=== PATIENT | female | born 1965 | race African-American/Black ===

== ENCOUNTER 2017-08-15 18:38 | Emergency (ER) | payer MEDICAID ==
[~2017-08-15] VITALS: Ht 154.9 cm; Wt 86.0 kg
[~2017-08-15 18:38] MED LIST: CLON0.2T PO
[2017-08-15] MEDS ORDERED: KETOROLAC 30MG/ML VIAL IV STA (21:54)
[2017-08-15 22:39] LABS: BASOPHILS % 0.8 % (0.0-2.0); EOSINOPHILS % 4.8 % (0.0-5.0); HEMATOCRIT. 39.1 % (36.0-48.0); HEMOGLOBIN. 12.2 g/dL (12.0-16.0); LYMPHOCYTES % 36.5 % (20.0-50.0); MEAN CORPUSCULAR HEMOGLOBIN 21.7 pg (28.0-32.0); MEAN CORPUSCULAR VOLUME 69.2 fL (81.0-99.0); MEAN PLATELET VOLUME 9.8 fl (7.4-10.4); MONOCYTES % 10.3 % (2.0-8.0); NEUTROPHILS % 47.6 % (40.0-76.0); PLATELET 214 x1000/uL (130-400); RED BLOOD CELL COUNT 5.64 mill/uL (4.2-5.4); RED CELL DISTRIBUTION WIDTH 18.4 % (11.6-14.6)
[2017-08-15 22:44] LABS: CHLORIDE 108 mEq/L (98-107)
[2017-08-15 22:48] LABS: CARBON DIOXIDE 28 mEq/L (21-32)
[2017-08-15 22:50] LABS: D-DIMER 0.25 mg/L FEU (<0.50); INR 1.1; PARTIAL THROMBOPLASTIN TIME 30.9 sec (23.4-31.0); PROTHROMBIN TIME 11.3 sec (9.4-11.6)
[2017-08-16 01:55] VITALS: BP 157/84
== END 2017-08-16 01:56 | disposition home or self-care (01) ==
LOC: ER 20:00
DX: R25.2 Cramp and spasm (principal); M25.512 Pain in left shoulder; R20.8 Other disturbances of skin sensation; I11.0 Hypertensive heart disease with heart failure; I50.9 Heart failure, unspecified; Z88.5 Allergy status to narcotic agent; Z88.8 Allergy status to other drugs, medicaments and biological substances
CPT/HCPCS: 36415; 71045; 71250; 72125; 80053; 85025; 85379; 85610; 85730; 93005; 93971; 96374; 99285; J1885; Z7610

== ENCOUNTER 2017-11-12 05:10 | Emergency (ER) | payer MEDICAID ==
[~2017-11-12] VITALS: Ht 154.9 cm; Wt 78.0 kg
[2017-11-12 06:44] LABS: HEMATOCRIT. 39.6 % (36.0-48.0); HEMOGLOBIN. 12.6 g/dL (12.0-16.0); MEAN PLATELET VOLUME 9.5 fl (7.4-10.4); PLATELET 212 x1000/uL (130-400); RED BLOOD CELL COUNT 5.74 mill/uL (4.2-5.4); RED CELL DISTRIBUTION WIDTH 17.6 % (11.6-14.6)
[2017-11-12 06:48] LABS: CHLORIDE 101 mEq/L (98-107)
[2017-11-12 06:49] LABS: INR 1.1
[2017-11-12 07:09] LABS: PLATELET ESTIMATE NORMAL
[2017-11-12 08:18] VITALS: BP 145/74
== END 2017-11-12 08:46 | disposition home or self-care (01) ==
LOC: ER 05:33
DX: R20.2 Paresthesia of skin (principal); I11.0 Hypertensive heart disease with heart failure; I50.9 Heart failure, unspecified; Z87.891 Personal history of nicotine dependence; Z88.5 Allergy status to narcotic agent
CPT/HCPCS: 36415; 70450; 71045; 80053; 83880; 84484; 85025; 85610; 93005; 99285

== ENCOUNTER 2018-02-17 19:30 | Emergency (ER) | payer MEDICAID ==
[~2018-02-17] VITALS: Ht 154.9 cm; Wt 77.0 kg
[2018-02-17] MEDS ORDERED: MORPHINE SULFATE 10 MG/ML CPJ IM ONE (22:45)
[2018-02-17 23:23] LABS: CHLORIDE 97 mEq/L (98-107); INR 1.1
[2018-02-18 01:35] VITALS: BP 178/85
== END 2018-02-18 01:44 | disposition home or self-care (01) ==
LOC: ER 22:22
DX: M62.831 Muscle spasm of calf (principal); I11.0 Hypertensive heart disease with heart failure; I50.9 Heart failure, unspecified; F12.10 Cannabis abuse, uncomplicated; Z86.718 Personal history of other venous thrombosis and embolism; Z88.6 Allergy status to analgesic agent; Z88.8 Allergy status to other drugs, medicaments and biological substances; Z91.041 Radiographic dye allergy status; Z79.899 Other long term (current) drug therapy; Z87.891 Personal history of nicotine dependence
CPT/HCPCS: 36415; 80053; 85610; 93971; 96372; 99285; J2270; Z7610

== ENCOUNTER 2018-03-07 17:10 | Inpatient (IN) | payer MEDICAID, OTHER ==
[~2018-03-07] VITALS: Ht 154.9 cm; Wt 74.8 kg
[2018-03-07] MEDS ORDERED: LISINOPRIL 20MG TABLET PO ONE (22:00)
[2018-03-07] MEDS ORDERED: CLONIDINE 0.3MG TABLET PO ONE (22:00)
[2018-03-07 22:25] LABS: CLARITY URINE CLEAR (CLEAR); COLOR URINE YELLOW (YELLOW); KETONES URINE NEGATIVE (NEGATIVE); LEUKOCYTE ESTERASE URINE TRACE (NEGATIVE); NITRITE URINE NEGATIVE (NEGATIVE); OCCULT BLOOD URINE TRACE (NEGATIVE); PROTEIN URINE NEGATIVE (NEGATIVE); SPECIFIC GRAVITY URINE 1.008 (1.005-1.030); UROBILINOGEN URINE 0.2 E.U./dL (0.2-1.0)
[2018-03-07 22:36] LABS: *AMPHETAMINES SCREEN URINE NEGATIVE (NEGATIVE); *BARBITURATES SCREEN URINE NEGATIVE (NEGATIVE); *BENZODIAZEPINES SCREEN URINE NEGATIVE (NEGATIVE)
[2018-03-07 22:37] LABS: *COCAINE SCREEN URINE NEGATIVE (NEGATIVE); CANNABINOID URINE SCREEN PRESUMTIVE POSITIVE (NEGATIVE); METHADONE URINE SCREEN NEGATIVE (NEGATIVE); OPIATES URINE SCREEN NEGATIVE (NEGATIVE); PHENCYCLIDINE URINE SCREEN NEGATIVE (NEGATIVE)
[2018-03-07 23:37] LABS: BASOPHILS % 1.1 % (0.0-2.0); EOSINOPHILS % 5.2 % (0.0-5.0); HEMATOCRIT. 41.4 % (36.0-48.0); HEMOGLOBIN. 13.2 g/dL (12.0-16.0); MEAN CORPUSCULAR HEMOGLOBIN 22.5 pg (28.0-32.0); MEAN CORPUSCULAR VOLUME 70.6 fL (81.0-99.0); MEAN PLATELET VOLUME 9.1 fl (7.4-10.4); MONOCYTES % 10.2 % (2.0-8.0); NEUTROPHILS % 42.5 % (40.0-76.0); PLATELET 219 x1000/uL (130-400); RED BLOOD CELL COUNT 5.86 mill/uL (4.2-5.4); RED CELL DISTRIBUTION WIDTH 16.1 % (11.6-14.6)
[2018-03-07 23:39] LABS: CHLORIDE 96 mEq/L (98-107)
[2018-03-07 23:43] LABS: ETHANOL BLOOD < 10 mg/dL
[2018-03-07] MEDS ORDERED: LABETALOL 5MG/ML SYR 20 MG/4 ML SYRINGE IV NR (23:45)
[2018-03-07] MEDS ORDERED: LABETALOL HCL 20MG/4ML CARPUJECT IV ONE (23:45)
[2018-03-08] MEDS ORDERED: ACETAMINOPHEN 500MG TABLET PO ONE (01:00)
[2018-03-08] MEDS ORDERED: KETOROLAC 30MG/ML VIAL IV ONE (02:00)
[2018-03-08] MEDS ORDERED: CLONIDINE 0.1MG TABLET PO PRN (04:15)
[2018-03-08] MEDS ORDERED: AMLODIPINE 10MG TABLET PO SCH (04:30)
[2018-03-08] MEDS ORDERED: METOPROLOL TARTRATE 50MG TABLET PO SCH (04:30)
[2018-03-08] MEDS ORDERED: LISINOPRIL 20MG TABLET PO SCH (04:30)
[2018-03-08] MEDS ORDERED: POTASSIUM CHLORIDE 20MEQ TABLET SR PO NR ×4 (04:30→12:00)
[2018-03-08] MEDS ORDERED: HYDRALAZINE HCL 100MG TABLET PO SCH ×2 (06:00→10:00)
[2018-03-08 06:26] VITALS: BP 159/84
[2018-03-08 08:00] VITALS: BP 162/79
[2018-03-08] MEDS ORDERED: HYDROCODONE/ACETAMINOPHEN 5/325MG TABLET PO PRN (08:00)
[2018-03-08] MEDS ORDERED: MORPHINE SULFATE 2 MG/ML CPJ (NOT FOR IM USE) IV PRN (08:00)
[2018-03-08 08:39] VITALS: BP 162/79
[2018-03-08] MEDS ORDERED: ASPIRIN 325MG TABLET PO SCH (09:00)
[2018-03-08] MEDS ORDERED: KETOROLAC 15MG/ML VIAL IV PRN (09:15)
[2018-03-08] MEDS ORDERED: CLON0.3T PO (11:25)
[2018-03-08] MEDS ORDERED: HYDR25TA MT (11:27)
[2018-03-08] MEDS ORDERED: IBUP-2030 PO (11:27)
[2018-03-08] MEDS ORDERED: LISI-604 MT (11:27)
[2018-03-08] MEDS ORDERED: GABA-531 MT (11:29)
[2018-03-08] MEDS ORDERED: DOCU-150 MT (11:29)
[2018-03-08] MEDS ORDERED: POTASSIUM CHLORIDE 20MEQ TABLET SR PO ONE (11:30)
[2018-03-08 12:58] VITALS: BP 113/63
[2018-03-08 15:48] VITALS: BP 113/63
[2018-03-08 16:51] VITALS: BP 136/72
[2018-03-09] MEDS ORDERED: LISINOPRIL 20MG TABLET PO SCH (09:00)
== END 2018-03-08 17:00 | disposition home or self-care (01) | DRG 199 ==
LOC: ER 17:10 → 6WST 03-08 00:54 → EDBEDREQ 03-08 00:56 → ENRESERV 03-08 02:32
PROVIDERS: ADMIT Internal Medicine; ATTEND Internal Medicine
DX: I16.1 Hypertensive emergency (principal); N17.9 Acute kidney failure, unspecified; E87.8 Other disorders of electrolyte and fluid balance, not elsewhere classified; I50.9 Heart failure, unspecified; E66.9 Obesity, unspecified; I13.0 Hypertensive heart and chronic kidney disease with heart failure and stage 1 through stage 4 chronic kidney disease, or unspecified chronic kidney disease; G62.9 Polyneuropathy, unspecified; E87.6 Hypokalemia; N18.9 Chronic kidney disease, unspecified; Z86.718 Personal history of other venous thrombosis and embolism; Z87.891 Personal history of nicotine dependence; Z98.891 History of uterine scar from previous surgery; Z79.01 Long term (current) use of anticoagulants; Z88.8 Allergy status to other drugs, medicaments and biological substances; Z88.6 Allergy status to analgesic agent; Z91.041 Radiographic dye allergy status; Z68.31 Body mass index [BMI] 31.0-31.9, adult; Z79.899 Other long term (current) drug therapy
CPT/HCPCS: 36415; 70450; 70551; 71045; 80053; 80305; 81003; 84132; 84484; 85025; 93005; 93971; 97162; G0482; J1885; J3490

== ENCOUNTER 2018-07-06 10:06 | Inpatient (IN) | payer MEDICAID ==
[~2018-07-06] VITALS: Ht 154.9 cm; Wt 64.5 kg
[~2018-07-06 10:06] MED LIST changes: +DOCU-150 MT; +GABA-531 MT; +HYDR25TA MT; +IBUP-2030 PO; +LISI-604 MT
[2018-07-06] MEDS ORDERED: ONDANSETRON HCL 4MG/2ML INJ IV STA (10:47)
[2018-07-06] MEDS ORDERED: FAMOTIDINE 20MG/2ML VIAL IV STA (10:47)
[2018-07-06] MEDS ORDERED: FENTANYL CITRATE/PF 50MCG/ML 2ML VIAL IV ONE (11:15)
[2018-07-06 11:53] LABS: BASOPHILS % 1.5 % (0.0-2.0); EOSINOPHILS % 4.1 % (0.0-5.0); HEMOGLOBIN. 15.4 g/dL (12.0-16.0); LYMPHOCYTES % 27.3 % (20.0-50.0); MEAN CORPUSCULAR HEMOGLOBIN 22.9 pg (28.0-32.0); MEAN CORPUSCULAR VOLUME 71.6 fL (81.0-99.0); MEAN PLATELET VOLUME 9.3 fl (7.4-10.4); MONOCYTES % 7.7 % (2.0-8.0); NEUTROPHILS % 59.4 % (40.0-76.0); PLATELET 234 x1000/uL (130-400); RED BLOOD CELL COUNT 6.71 mill/uL (4.2-5.4); RED CELL DISTRIBUTION WIDTH 16.3 % (11.6-14.6)
[2018-07-06 12:02] LABS: CHLORIDE 94 mEq/L (98-107)
[2018-07-06] MEDS ORDERED: POTASSIUM CHLORIDE 20MEQ TABLET SR PO ONE (12:30)
[2018-07-06] MEDS ORDERED: KCL 20MEQ/100ML PREMIX 100 ML IV ONE (12:30)
[2018-07-06] MEDS ORDERED: ASPIRIN 81MG TABLET PO ONE (12:45)
[2018-07-06] MEDS ORDERED: SIMETHICONE 40 MG/0.6 ML 30ML ONE (14:01)
[2018-07-06 14:02] LABS: INR 1.1; PARTIAL THROMBOPLASTIN TIME 27.2 sec (23.4-31.0); PROTHROMBIN TIME 10.8 sec (9.1-11.1)
[2018-07-06] MEDS ORDERED: SODIUM CHLORIDE 0.9% 1,000 ML IV NR (14:15)
[2018-07-06] MEDS: ONDANSETRON HCL 4MG/2ML INJ IV PRN (15:22)
[2018-07-06 15:45] LABS: PHOSPHORUS 3.8 mg/dL (2.5-4.9)
[2018-07-06] MEDS ORDERED: POTASSIUM CHLORIDE INJ 40 MEQ in DEXT 5% WATER 250 ML IV NR (16:30)
[2018-07-06 17:31] VITALS: BP 196/100
[2018-07-06 17:55] VITALS: BP 203/163
[2018-07-06 18:03] VITALS: BP 200/111
[2018-07-06 18:05] VITALS: BP 200/111
[2018-07-06] MEDS: HYDROMORPHONE HCL/PF 2MG/ML CPJ IV PRN (18:44)
[2018-07-06 19:29] LABS: CLARITY URINE CLOUDY (CLEAR); COLOR URINE YELLOW (YELLOW); KETONES URINE TRACE (NEGATIVE); LEUKOCYTE ESTERASE URINE 1+ (NEGATIVE); NITRITE URINE NEGATIVE (NEGATIVE); OCCULT BLOOD URINE 1+ (NEGATIVE); PROTEIN URINE 1+ (NEGATIVE); SPECIFIC GRAVITY URINE 1.015 (1.005-1.030); UROBILINOGEN URINE 0.2 E.U./dL (0.2-1.0)
[2018-07-06 19:45] LABS: *AMPHETAMINES SCREEN URINE NEGATIVE (NEGATIVE); *BARBITURATES SCREEN URINE NEGATIVE (NEGATIVE); *BENZODIAZEPINES SCREEN URINE NEGATIVE (NEGATIVE); *COCAINE SCREEN URINE NEGATIVE (NEGATIVE); METHADONE URINE SCREEN NEGATIVE (NEGATIVE)
[2018-07-06 19:46] LABS: CANNABINOID URINE SCREEN PRESUMTIVE POSITIVE (NEGATIVE); OPIATES URINE SCREEN NEGATIVE (NEGATIVE); PHENCYCLIDINE URINE SCREEN NEGATIVE (NEGATIVE)
[2018-07-06 20:00] VITALS: BP 153/82
[2018-07-06] MEDS: DIPHENHYDRAMINE 50MG/ML VIAL IV PRN (20:54)
[2018-07-06 22:00] VITALS: BP 179/95
[2018-07-06] MEDS: CLONIDINE 0.1MG TABLET PO PRN (22:45)
[2018-07-07] VITALS (13 sets, daily range): BP systolic 136–204; BP diastolic 69–114
[2018-07-07] MEDS: DIPHENHYDRAMINE 50MG/ML VIAL IV PRN ×2 (05:14→21:33)
[2018-07-07] MEDS: CLONIDINE 0.1MG TABLET PO PRN ×3 (05:19→21:33)
[2018-07-07 06:32] LABS: BASOPHILS % 1.1 % (0.0-2.0); EOSINOPHILS % 4.7 % (0.0-5.0); HEMATOCRIT. 39.9 % (36.0-48.0); HEMOGLOBIN. 12.7 g/dL (12.0-16.0); LYMPHOCYTES % 20.1 % (20.0-50.0); MEAN CORPUSCULAR HEMOGLOBIN 23.2 pg (28.0-32.0); MEAN CORPUSCULAR VOLUME 72.7 fL (81.0-99.0); MEAN PLATELET VOLUME 9.3 fl (7.4-10.4); MONOCYTES % 12.3 % (2.0-8.0); NEUTROPHILS % 61.8 % (40.0-76.0); PLATELET 164 x1000/uL (130-400); RED BLOOD CELL COUNT 5.49 mill/uL (4.2-5.4); RED CELL DISTRIBUTION WIDTH 16.6 % (11.6-14.6)
[2018-07-07] MEDS: PANTOPRAZOLE SODIUM 40 MG/VIAL IV SCH (08:46)
[2018-07-07] MEDS: AMLODIPINE 5MG TABLET PO SCH ×2 (08:46→21:33)
[2018-07-07] MEDS: SODIUM CHLORIDE 0.45% 1,000 ML IV SCH ×2 (08:47→20:12)
[2018-07-07] MEDS ORDERED: POTASSIUM CHLORIDE INJ 40 MEQ in DEXT 5% WATER 250 ML IV ONE (09:00)
[2018-07-07] MEDS: CEFTRIAXONE 1 G PREMIX 50 ML IV SCH (10:17)
[2018-07-07] MEDS: HYDROMORPHONE HCL/PF 2MG/ML CPJ IV PRN ×2 (11:48→20:11)
[2018-07-07] MEDS ORDERED: THROAT LOZENGES-BENZOCAINE/MENTH/CETYLPYRD CL LOZENGES MM PRN (12:00)
[2018-07-07] MEDS ORDERED: LACTULOSE 20G/30ML UDC PO NR (12:45)
[2018-07-07] MEDS ORDERED: BISACODYL 10MG SUPP PR NR (12:45)
[2018-07-07] MEDS ORDERED: BISACODYL 5MG TABLET PO PRN (12:45)
[2018-07-07] MEDS ORDERED: BISACODYL 10MG SUPP PR PRN (12:45)
[2018-07-08] VITALS (14 sets, daily range): BP systolic 124–183; BP diastolic 73–120
[2018-07-08] MEDS: CLONIDINE 0.1MG TABLET PO PRN ×2 (04:00→08:13)
[2018-07-08] MEDS: SODIUM CHLORIDE 0.45% 1,000 ML IV SCH ×2 (04:01→14:38)
[2018-07-08 06:48] LABS: BASOPHILS % 1.1 % (0.0-2.0); EOSINOPHILS % 7.2 % (0.0-5.0); HEMATOCRIT. 39.1 % (36.0-48.0); HEMOGLOBIN. 12.2 g/dL (12.0-16.0); LYMPHOCYTES % 33.4 % (20.0-50.0); MEAN CORPUSCULAR HEMOGLOBIN 22.7 pg (28.0-32.0); MEAN CORPUSCULAR VOLUME 72.4 fL (81.0-99.0); MEAN PLATELET VOLUME 9.4 fl (7.4-10.4); MONOCYTES % 12.8 % (2.0-8.0); NEUTROPHILS % 45.5 % (40.0-76.0); PLATELET 145 x1000/uL (130-400); RED BLOOD CELL COUNT 5.39 mill/uL (4.2-5.4); RED CELL DISTRIBUTION WIDTH 16.6 % (11.6-14.6)
[2018-07-08 06:54] LABS: INR 1.1; PARTIAL THROMBOPLASTIN TIME 23.9 sec (23.4-31.0); PROTHROMBIN TIME 10.8 sec (9.1-11.1)
[2018-07-08 07:29] LABS: PHOSPHORUS 2.8 mg/dL (2.5-4.9)
[2018-07-08] MEDS: PANTOPRAZOLE SODIUM 40 MG/VIAL IV SCH (08:12)
[2018-07-08] MEDS: ONDANSETRON HCL 4MG/2ML INJ IV PRN (08:12)
[2018-07-08] MEDS: AMLODIPINE 5MG TABLET PO SCH ×2 (08:13→20:50)
[2018-07-08] MEDS: CEFTRIAXONE 1 G PREMIX 50 ML IV SCH (08:13)
[2018-07-08] MEDS: HYDROMORPHONE HCL/PF 2MG/ML CPJ IV PRN ×2 (08:14→20:41)
[2018-07-08] MEDS: POTASSIUM CHLORIDE 20MEQ/PACKET PO NR ×2 (08:15→08:24)
[2018-07-08] MEDS ORDERED: POTASSIUM CHLORIDE INJ 60 MEQ in DEXT 5% WATER 500 ML IV NR ×2 (08:45→09:30)
[2018-07-08] MEDS: DIPHENHYDRAMINE 50MG/ML VIAL IV PRN ×2 (09:58→21:11)
[2018-07-08] MEDS ORDERED: POTASSIUM CHLORIDE 20MEQ TABLET SR PO NR (12:00)
[2018-07-08] MEDS ORDERED: METOCLOPRAMIDE HCL 10MG/2ML VIAL IV NR (12:00)
[2018-07-08] MEDS ORDERED: FENTANYL CITRATE/PF 50MCG/ML 2ML VIAL ONE (15:12)
[2018-07-08] MEDS ORDERED: MIDAZOLAM HCL 5 MG/5 ML VIAL ONE (15:12)
[2018-07-08] MEDS ORDERED: FENTANYL CITRATE/PF 50MCG/ML 2ML VIAL IV PRN (15:15)
[2018-07-08] MEDS ORDERED: MIDAZOLAM HCL 5 MG/5 ML VIAL IV PRN (15:17)
[2018-07-09] VITALS (8 sets, daily range): BP systolic 151–213; BP diastolic 79–125
[2018-07-09] MEDS: SODIUM CHLORIDE 0.45% 1,000 ML IV SCH ×2 (01:04→07:25)
[2018-07-09] MEDS: DIPHENHYDRAMINE 50MG/ML VIAL IV PRN (05:32)
[2018-07-09] MEDS: HYDROMORPHONE HCL/PF 2MG/ML CPJ IV PRN ×2 (06:47→11:35)
[2018-07-09 06:54] LABS: BASOPHILS % 0.7 % (0.0-2.0); EOSINOPHILS % 6.4 % (0.0-5.0); HEMOGLOBIN. 12.5 g/dL (12.0-16.0); LYMPHOCYTES % 36.1 % (20.0-50.0); MEAN CORPUSCULAR VOLUME 73.5 fL (81.0-99.0); MEAN PLATELET VOLUME 9.5 fl (7.4-10.4); MONOCYTES % 14.4 % (2.0-8.0); NEUTROPHILS % 42.4 % (40.0-76.0); PLATELET 125 x1000/uL (130-400); RED BLOOD CELL COUNT 5.44 mill/uL (4.2-5.4); RED CELL DISTRIBUTION WIDTH 17.1 % (11.6-14.6)
[2018-07-09 07:37] LABS: PHOSPHORUS 2.2 mg/dL (2.5-4.9)
[2018-07-09] MEDS ORDERED: POTASSIUM CHLORIDE 20MEQ/PACKET PO NR (08:00)
[2018-07-09] MEDS: AMLODIPINE 5MG TABLET PO SCH (08:40)
[2018-07-09] MEDS: CEFTRIAXONE 1 G PREMIX 50 ML IV SCH (08:40)
[2018-07-09] MEDS: CLONIDINE 0.1MG TABLET PO PRN (08:41)
[2018-07-09] MEDS ORDERED: FAMOTIDINE 20MG/2ML VIAL IV SCH (09:00)
[2018-07-09] MEDS: ONDANSETRON HCL 4MG/2ML INJ IV PRN (11:41)
[2018-07-09] MEDS ORDERED: CLONIDINE 0.3MG TABLET PO SCH (14:00)
[2018-07-09] MEDS ORDERED: GABAPENTIN 300MG CAPSULE PO SCH (21:00)
[2018-07-10 13:06] LABS: COMPLEMENT C3 131 mg/dL (82-167)
[2018-07-11 17:06] LABS: ANTI-NUCLEAR ANTIBODIES DIRECT Positive (Negative)
== END 2018-07-09 14:43 | disposition home or self-care (01) | DRG 241 ==
LOC: ER 10:06 → EDBEDREQSVC 14:03 → 3WST 14:03 → ENRESERV 16:00
PROVIDERS: ADMIT Internal Medicine; ATTEND Internal Medicine
PROC: 05HY33Z Insertion of Infusion Device into Upper Vein, Percutaneous Approach (ICD-10-PCS; 2018-07-06)
PROC: B54MZZA Ultrasonography of Right Upper Extremity Veins, Guidance (ICD-10-PCS; 2018-07-06)
PROC: 0DB68ZX Excision of Stomach, Via Natural or Artificial Opening Endoscopic, Diagnostic (ICD-10-PCS; principal; 2018-07-08 11:00)
DX: K29.70 Gastritis, unspecified, without bleeding (principal); N17.9 Acute kidney failure, unspecified; E87.8 Other disorders of electrolyte and fluid balance, not elsewhere classified; E83.41 Hypermagnesemia; I31.3 Pericardial effusion (noninflammatory); G62.9 Polyneuropathy, unspecified; R13.10 Dysphagia, unspecified; K44.9 Diaphragmatic hernia without obstruction or gangrene; E86.9 Volume depletion, unspecified; E87.6 Hypokalemia; K21.9 Gastro-esophageal reflux disease without esophagitis; N18.9 Chronic kidney disease, unspecified; I12.9 Hypertensive chronic kidney disease with stage 1 through stage 4 chronic kidney disease, or unspecified chronic kidney disease; N39.0 Urinary tract infection, site not specified; D25.9 Leiomyoma of uterus, unspecified; J02.9 Acute pharyngitis, unspecified; R14.3 Flatulence; K59.00 Constipation, unspecified; Z86.010 Personal history of colon polyps; Z86.718 Personal history of other venous thrombosis and embolism; Z87.891 Personal history of nicotine dependence; Z98.891 History of uterine scar from previous surgery; Z88.5 Allergy status to narcotic agent; Z88.8 Allergy status to other drugs, medicaments and biological substances; Z91.041 Radiographic dye allergy status; Z91.013 Allergy to seafood; Z79.899 Other long term (current) drug therapy
CPT/HCPCS: 36415; 36569; 71045; 74018; 74176; 74181; 76705; 76937; 80048; 80076; 80305; 82140; 82550; 82553; 82570; 83605; 83735; 83880; 84100; 84132; 84300; 84484; 86038; 86160; 88305; 88312; 88313; 92610; 93005; 93306; 93970; 96374; 96375; 99291; C1725; C1769; C9113; J0696; J1170; J1200; J2250; J2405; J2765; J3010; J3480; J3490; J7050; J7060; A4315

== ENCOUNTER 2019-06-21 13:56 | Inpatient (IN) | payer MEDICAID ==
[~2019-06-21] VITALS: Ht 165.1 cm; Wt 52.2 kg
[~2019-06-21 13:56] MED LIST changes: -CLON0.2T PO; +CLON0.3T MT; -HYDR25TA MT; -IBUP-2030 PO; -LISI-604 MT; +LISI10TA5 MT
[2019-06-21] MEDS ORDERED: SODIUM CHLORIDE 0.9% 1,000 ML IV ONE (14:50)
[2019-06-21] MEDS ORDERED: ONDANSETRON HCL 4MG/2ML INJ IV STA (14:50)
[2019-06-21] MEDS ORDERED: LORAZEPAM 2MG/ML CPJ IV ONE (15:00)
[2019-06-21] MEDS ORDERED: LABETALOL HCL 20MG/4ML CARPUJECT IV ONE (15:00)
[2019-06-21] MEDS ORDERED: NICARDIPINE 40MG/200ML PREMIX 200 ML IV STA (15:55)
[2019-06-21 16:03] LABS: CHLORIDE 110 mEq/L (98-107)
[2019-06-21 16:04] LABS: BASOPHILS % 1.2 % (0.0-2.0); EOSINOPHILS % 0.4 % (0.0-5.0); HEMATOCRIT. 44.1 % (36.0-48.0); HEMOGLOBIN. 13.8 g/dL (12.0-16.0); LYMPHOCYTES % 11.2 % (20.0-50.0); MEAN CORPUSCULAR VOLUME 70.7 fL (81.0-99.0); MEAN PLATELET VOLUME 9.5 fl (7.4-10.4); NEUTROPHILS % 81.2 % (40.0-76.0); PARTIAL THROMBOPLASTIN TIME 26.2 sec (23.4-31.0); PLATELET 215 x1000/uL (130-400); PROTHROMBIN TIME 10.7 sec (9.6-11.0); RED BLOOD CELL COUNT 6.24 mill/uL (4.2-5.4); RED CELL DISTRIBUTION WIDTH 18.6 % (11.6-14.6)
[2019-06-21 16:07] LABS: ETHANOL BLOOD < 10 mg/dL
[2019-06-21] MEDS ORDERED: KCL 20MEQ/100ML PREMIX 100 ML IV ONE (16:30)
[2019-06-21] MEDS ORDERED: FAMOTIDINE 20MG/2ML VIAL IV ONE (16:45)
[2019-06-21] MEDS ORDERED: ACETAMINOPHEN 325MG TABLET PO PRN (17:45)
[2019-06-21] MEDS ORDERED: IPRATROPIUM/ALBUTEROL 0.5-3(2.5)MG/3ML NEB HHN PRN (17:45)
[2019-06-21 17:51] LABS: CLARITY URINE CLEAR (CLEAR); COLOR URINE YELLOW (YELLOW)
[2019-06-21 17:52] LABS: KETONES URINE NEGATIVE (NEGATIVE); LEUKOCYTE ESTERASE URINE NEGATIVE (NEGATIVE); NITRITE URINE NEGATIVE (NEGATIVE); OCCULT BLOOD URINE 2+ (NEGATIVE); PROTEIN URINE 2+ (NEGATIVE); SPECIFIC GRAVITY URINE 1.008 (1.005-1.030); UROBILINOGEN URINE 0.2 E.U./dL (0.2-1.0)
[2019-06-21 18:04] LABS: *AMPHETAMINES SCREEN URINE NEGATIVE (NEGATIVE); *BARBITURATES SCREEN URINE NEGATIVE (NEGATIVE); *BENZODIAZEPINES SCREEN URINE NEGATIVE (NEGATIVE); *COCAINE SCREEN URINE NEGATIVE (NEGATIVE); METHADONE URINE SCREEN NEGATIVE (NEGATIVE); OPIATES URINE SCREEN NEGATIVE (NEGATIVE)
[2019-06-21 18:05] LABS: CANNABINOID URINE SCREEN PRESUMTIVE POSITIVE (NEGATIVE); PHENCYCLIDINE URINE SCREEN NEGATIVE (NEGATIVE)
[2019-06-21 19:40] LABS: PHOSPHORUS 3.3 mg/dL (2.5-4.9)
[2019-06-21] MEDS ORDERED: HYDRALAZINE 20MG/ML VIAL IV ONE (21:00)
[2019-06-21 22:00] VITALS: BP_SYST 159; BP_SYST 168; BP_DIAS 82; BP_DIAS 92
[2019-06-21 22:30] VITALS: BP 172/84
[2019-06-21] MEDS ORDERED: LORAZEPAM 2MG/ML CPJ IV NR (22:30)
[2019-06-21] MEDS ORDERED: HALOPERIDOL LACTATE 5MG/ML VIAL IM NR (22:30)
[2019-06-21] MEDS: ENOXAPARIN 40MG/0.4ML SYR SUBCUT SCH (22:51)
[2019-06-21] MEDS: ONDANSETRON HCL 4MG/2ML INJ IV PRN (22:51)
[2019-06-21] MEDS: DIPHENHYDRAMINE 50MG/ML VIAL IV PRN (22:51)
[2019-06-21 23:00] VITALS: BP 130/78
[2019-06-21 23:30] VITALS: BP 112/62
[2019-06-22] VITALS (72 sets, daily range): BP systolic 112–197; BP diastolic 58–123
[2019-06-22] MEDS: NICARDIPINE 50 MG in SODIUM CHLORIDE 0.9% 230 ML IV PRN ×3 (01:28→23:10)
[2019-06-22] MEDS: HALOPERIDOL LACTATE 5MG/ML VIAL IM PRN ×3 (05:05→18:29)
[2019-06-22 05:58] LABS: HEMATOCRIT. 43.1 % (36.0-48.0); HEMOGLOBIN. 13.4 g/dL (12.0-16.0); MEAN CORPUSCULAR VOLUME 70.9 fL (81.0-99.0); MEAN PLATELET VOLUME 9.6 fl (7.4-10.4); PLATELET 156 x1000/uL (130-400); RED BLOOD CELL COUNT 6.08 mill/uL (4.2-5.4); RED CELL DISTRIBUTION WIDTH 17.8 % (11.6-14.6)
[2019-06-22 05:59] LABS: CHLORIDE 109 mEq/L (98-107)
[2019-06-22 06:13] LABS: CREATINE KINASE 507 IU/L (26-192); LDL CHOLESTEROL 56 mg/dL (5-100)
[2019-06-22 06:14] LABS: CREATINE KINASE MB FRACTION 5.9 ng/mL (0.5-3.6); HDL CHOLESTEROL 72 mg/dL (40-59)
[2019-06-22 08:40] LABS: PLATELET ESTIMATE NORMAL
[2019-06-22 09:20] LABS: HCG SCREEN NEGATIVE
[2019-06-22] MEDS: FAMOTIDINE 20MG TABLET PO SCH (09:34)
[2019-06-22] MEDS: SODIUM CHLORIDE 0.9% 1,000 ML IV SCH (09:34)
[2019-06-22] MEDS ORDERED: POTASSIUM CHLORIDE INJ 40 MEQ in DEXT 5% WATER 250 ML IV NR (10:00)
[2019-06-22] MEDS: ONDANSETRON HCL 4MG/2ML INJ IV PRN (14:30)
[2019-06-22] MEDS ORDERED: POTASSIUM CHLORIDE 20MEQ/PACKET PO NR (20:00)
[2019-06-22] MEDS: HYDROCODONE/ACETAMINOPHEN 5/325MG TABLET PO PRN (20:10)
[2019-06-22] MEDS: ENOXAPARIN 40MG/0.4ML SYR SUBCUT SCH (21:22)
[2019-06-22] MEDS: DIPHENHYDRAMINE 50MG/ML VIAL IV PRN (22:40)
[2019-06-23] VITALS (62 sets, daily range): BP systolic 123–209; BP diastolic 76–139
[2019-06-23] MEDS: SODIUM CHLORIDE 0.9% 1,000 ML IV SCH ×2 (00:09→15:33)
[2019-06-23] MEDS: HALOPERIDOL LACTATE 5MG/ML VIAL IM PRN ×2 (00:27→08:08)
[2019-06-23] MEDS: HYDROCODONE/ACETAMINOPHEN 5/325MG TABLET PO PRN ×3 (02:04→20:26)
[2019-06-23 05:55] LABS: BASOPHILS % 0.3 % (0.0-2.0); HEMATOCRIT. 42.1 % (36.0-48.0); HEMOGLOBIN. 13.1 g/dL (12.0-16.0); LYMPHOCYTES % 9.3 % (20.0-50.0); MEAN CORPUSCULAR HEMOGLOBIN 22.3 pg (28.0-32.0); MEAN CORPUSCULAR VOLUME 71.7 fL (81.0-99.0); MEAN PLATELET VOLUME 10.3 fl (7.4-10.4); MONOCYTES % 6.5 % (2.0-8.0); NEUTROPHILS % 83.9 % (40.0-76.0); PLATELET 129 x1000/uL (130-400); RED BLOOD CELL COUNT 5.87 mill/uL (4.2-5.4); RED CELL DISTRIBUTION WIDTH 18.4 % (11.6-14.6)
[2019-06-23 06:05] LABS: T4 FREE 1.17 ng/dL (0.76-1.46)
[2019-06-23] MEDS ORDERED: ONDANSETRON 4MG ODT PO PRN (07:00)
[2019-06-23] MEDS: CLONIDINE 0.1MG TABLET PO SCH ×3 (08:11→20:20)
[2019-06-23] MEDS: FAMOTIDINE 20MG TABLET PO SCH (08:11)
[2019-06-23] MEDS ORDERED: AMLODIPINE 5MG TABLET PO SCH ×2 (09:00→21:00)
[2019-06-23] MEDS ORDERED: ASPIRIN 81MG EC TABLET PO SCH (09:00)
[2019-06-23 09:07] LABS: BASOPHILS % 0.4 % (0.0-2.0); EOSINOPHILS % 0.1 % (0.0-5.0); HEMATOCRIT. 43.8 % (36.0-48.0); HEMOGLOBIN. 13.6 g/dL (12.0-16.0); LYMPHOCYTES % 9.6 % (20.0-50.0); MEAN CORPUSCULAR HEMOGLOBIN 22.1 pg (28.0-32.0); MEAN CORPUSCULAR VOLUME 71.1 fL (81.0-99.0); MEAN PLATELET VOLUME 9.4 fl (7.4-10.4); MONOCYTES % 7.3 % (2.0-8.0); NEUTROPHILS % 82.6 % (40.0-76.0); PLATELET 119 x1000/uL (130-400); RED BLOOD CELL COUNT 6.17 mill/uL (4.2-5.4); RED CELL DISTRIBUTION WIDTH 18.5 % (11.6-14.6)
[2019-06-23] MEDS ORDERED: ONDANSETRON HCL 4MG TABLET PO PRN (10:30)
[2019-06-24] VITALS (25 sets, daily range): BP systolic 109–177; BP diastolic 60–120
[2019-06-24] MEDS ORDERED: NICARDIPINE 40MG/200ML PREMIX 200 ML IV SCH
[2019-06-24] MEDS ORDERED: NICARDIPINE 50 MG in SODIUM CHLORIDE 0.9% 230 ML IV PRN (00:45)
[2019-06-24] MEDS: DIPHENHYDRAMINE 50MG/ML VIAL IV PRN (01:33)
[2019-06-24] MEDS: HYDROCODONE/ACETAMINOPHEN 5/325MG TABLET PO PRN (01:44)
[2019-06-24 06:19] LABS: BASOPHILS % 0.4 % (0.0-2.0); EOSINOPHILS % 1.6 % (0.0-5.0); HEMATOCRIT. 40.5 % (36.0-48.0); HEMOGLOBIN. 12.6 g/dL (12.0-16.0); LYMPHOCYTES % 30.2 % (20.0-50.0); MEAN CORPUSCULAR HEMOGLOBIN 22.2 pg (28.0-32.0); MEAN CORPUSCULAR VOLUME 71.4 fL (81.0-99.0); MEAN PLATELET VOLUME 9.8 fl (7.4-10.4); MONOCYTES % 10.8 % (2.0-8.0); PLATELET 116 x1000/uL (130-400); RED BLOOD CELL COUNT 5.68 mill/uL (4.2-5.4); RED CELL DISTRIBUTION WIDTH 18.2 % (11.6-14.6)
[2019-06-24] MEDS: CLONIDINE 0.1MG TABLET PO SCH (07:09)
[2019-06-24 07:11] LABS: OPIATES URINE SCREEN PRESUMTIVE POSITIVE (NEGATIVE)
[2019-06-24 07:12] LABS: *AMPHETAMINES SCREEN URINE NEGATIVE (NEGATIVE); *BARBITURATES SCREEN URINE NEGATIVE (NEGATIVE); *BENZODIAZEPINES SCREEN URINE NEGATIVE (NEGATIVE); *COCAINE SCREEN URINE NEGATIVE (NEGATIVE); CANNABINOID URINE SCREEN PRESUMTIVE POSITIVE (NEGATIVE); METHADONE URINE SCREEN NEGATIVE (NEGATIVE); PHENCYCLIDINE URINE SCREEN NEGATIVE (NEGATIVE)
[2019-06-24] MEDS ORDERED: POTASSIUM CHLORIDE 20MEQ TABLET SR PO NR (08:15)
== END 2019-06-24 09:06 | disposition left against medical advice (07) | DRG 194 ==
LOC: ER 13:56 → MICUSO 16:06 → EDBEDREQ 16:11 → EDBEDREQSVC 16:11 → EDBEDREQTM 16:11 → ENRESERV 20:02
PROVIDERS: ADMIT Internal Medicine; ATTEND Internal Medicine
DX: I13.0 Hypertensive heart and chronic kidney disease with heart failure and stage 1 through stage 4 chronic kidney disease, or unspecified chronic kidney disease (principal); G92 Toxic encephalopathy; N17.9 Acute kidney failure, unspecified; D69.6 Thrombocytopenia, unspecified; I31.3 Pericardial effusion (noninflammatory); M62.82 Rhabdomyolysis; Z78.1 Physical restraint status; I16.1 Hypertensive emergency; I43 Cardiomyopathy in diseases classified elsewhere; I50.9 Heart failure, unspecified; I25.10 Atherosclerotic heart disease of native coronary artery without angina pectoris; F29 Unspecified psychosis not due to a substance or known physiological condition; N18.9 Chronic kidney disease, unspecified; E87.6 Hypokalemia; D25.9 Leiomyoma of uterus, unspecified; F12.90 Cannabis use, unspecified, uncomplicated; F41.0 Panic disorder [episodic paroxysmal anxiety]; G89.29 Other chronic pain; K21.9 Gastro-esophageal reflux disease without esophagitis; K59.00 Constipation, unspecified; N81.10 Cystocele, unspecified; F41.9 Anxiety disorder, unspecified; R31.9 Hematuria, unspecified; R80.9 Proteinuria, unspecified; Z53.29 Procedure and treatment not carried out because of patient's decision for other reasons; Z86.718 Personal history of other venous thrombosis and embolism; Z86.73 Personal history of transient ischemic attack (TIA), and cerebral infarction without residual deficits; Z87.891 Personal history of nicotine dependence; Z79.899 Other long term (current) drug therapy; Z88.5 Allergy status to narcotic agent; Z88.8 Allergy status to other drugs, medicaments and biological substances; Z91.041 Radiographic dye allergy status; Z91.013 Allergy to seafood
CPT/HCPCS: 36415; 71045; 74176; 76775; 80048; 80061; 80305; 80307; 80320; 81003; 82140; 82248; 82550; 82553; 82962; 83036; 83735; 83880; 84100; 84132; 84145; 84439; 84443; 84481; 84484; 84703; 93005; 93306; 93970; 96361; 96374; 96375; 99291; J0360; J1200; J1630; J1650; J2060; J2405; J3480; J3490; J7030; J7050; J7060; A4315; G0480

== ENCOUNTER 2020-06-01 13:56 | Emergency (ER) | payer MEDICAID ==
[~2020-06-01] VITALS: Ht 154.9 cm; Wt 60.0 kg
[2020-06-01 14:19] VITALS: BP 170/72
== END 2020-06-01 16:56 | disposition left against medical advice (07) ==
LOC: ER 13:56
DX: Z53.21 Procedure and treatment not carried out due to patient leaving prior to being seen by health care provider (principal)